=== PATIENT | female | born 1975 | race Caucasian/White ===

== ENCOUNTER 2016-08-21 11:11 | Emergency (ER) | payer OTHER ==
[2016-08-21 13:05] LABS: HEMOGLOBIN 14.2 gm/dl (12.3-15.3); RED BLOOD COUNT 5.1 M/UL (4.00-5.10); WHITE BLOOD COUNT 12.5 K/UL (4.5-11.0)
[2016-08-21 13:21] LABS: BUN/CREATININE RATIO 20 (0-10)
== END 2016-08-21 15:35 | disposition home or self-care (01) ==
LOC: ER1 11:11
PROVIDERS: Physician Assistant Medical
DX: N39.0 Urinary tract infection, site not specified (principal); E11.65 Type 2 diabetes mellitus with hyperglycemia
CPT/HCPCS: 36415; 80053; 81001; 82009; 82150; 82962; 83690; 84703; 85025; 87077; 87086; 87186; 96361; 96374; 99284; J2405; J7030